=== PATIENT | female | born 1980 | race Caucasian/White ===

== ENCOUNTER 2025-06-10 08:05 | Emergency (ER) | payer OTHER, SELFPAY ==
--- NOTE | 2025-06-10 08:07 | ED.FEMALEGU ---
HPI - Female Genitourinary General Chief complaint: Urogenital-Female Stated complaint: Urinary Irritation Time Seen by Provider: 06/10/25 08:07 Source: patient Mode of arrival: ambulatory Limitations: no limitations History of Present Illness HPI Narrative: Valentine is a 44 year old female patient presenting to the clinic today with c/o possible UTI x 2 days. She reports she has had burning, frequency, and urgency with urination has had 2 episodes of incontinence where she did not make it to the bathroom on time. No fevers, chills, body aches, back pain, or abdominal pain. Does endorse some bladder pressure. No vaginal discharge or odor. No concern for STIs. History of tubal ligation. Related Data Allergies Allergy/AdvReac Type Severity Reaction Status Date / Time loracarbef Allergy Intermediate Rash Verified 09/02/13 15:29 Cephalosporins Allergy Mild Rash Unverified 02/25/09 13:37 Review of Systems Review of Systems: Pertinent positives per HPI. Patient denies any fever, chills, rash, headache, visual changes, dizziness, cough, runny nose, sore throat, shortness of breath, chest pain, palpitations, nausea, vomiting, diarrhea, constipation, abdominal pain, or any urinary issues. PMFSH Comments At the time of my signature, I reviewed and agree with the nursing past medical, surgical, social, and family history. There is no relevant family history pertinent to the patient complaint. Exam Narrative: General: Well-developed, well nourished, in no apparent distress. Head: Normocephalic, atraumatic. Cardio: Regular rate and rhythm, s1 and s2 normal, no murmur appreciated. Resp: Clear to auscultation bilaterally, no rhonchi, rales, wheezing or rubs. Abdomen: Soft, pliable, bowel sounds present in all quadrants, suprapubic-tender to palpation, no organomegly, no CVAT tenderness. Course Course Emergency Course: Portions of this record may have been created with voice recognition software. Level of Care: Express Care Visit Vital Signs Vital signs: Vital Signs Temperature 37.4 C 06/10/25 08:21 Pulse Rate 71 06/10/25 08:21 Respiratory Rate 20 06/10/25 08:21 Blood Pressure 110/68 06/10/25 08:21 Pulse Oximetry 100 06/10/25 08:21 Oxygen Delivery Room Air 06/10/25 08:21 Temperature 37.4 C 06/10/25 08:21 Pulse Rate 71 06/10/25 08:21 Respiratory Rate 20 06/10/25 08:21 Blood Pressure 110/68 06/10/25 08:21 Pulse Oximetry 100 06/10/25 08:21 Oxygen Delivery Room Air 06/10/25 08:21 Vital signs reviewed MDM - Female Genitourinary MDM Narrative Medical decision making narrative: At the time of visit patient is resting comfortably on the exam table. Patient appears to be nontoxic. C/o possible UTI x 2 days. Burning, frequency, and urgency with urination - 2 episodes of incontinence where she did not make it to the bathroom on time. No fevers, chills, body aches, back pain, or abdominal pain. No nausea or vomiting. Does endorse some bladder pressure. No vaginal discharge or odor. No concern for STIs. History of tubal ligation. Urine dip and urine culture ordered. Labs: Urine dip 1+ leukocytes, 1+ blood, and trace of protein. We will send urine for culture. Plan: I suspect patient has a simple UTI. Prescription for Bactrim DS 1 tab b.i.d. x5 days sent to the pharmacy. Supportive measures were discussed with the patient and they voiced understanding discharge instructions and agrees to treatment plan. Return precautions reviewed Differential Diagnosis Differential diagnosis: Likely urinary tract infection, cystitis and other (Pyelonephritis) Lab Data Labs: Lab Results 06/10/25 Range/Units 08:23 POC Urine Color Yellow POC Urine Clarity Cloudy POC Urine pH 6.5 POC Ur Specif Williamson 1.025 POC Urine Protein Trace (Negative) POC Ur Glucose (UA) Negative (Negative) POC Urine Ketones Negative (Negative) POC Urine Blood Trace (Negative) POC Urine Nitrite Negative (Negative) POC Urine Bilirubin Negative (Negative) POC Urine Urobilinogen 0.2 POC U Leukocyte Esteras 1+ (Negative) Discharge Plan Discharge Clinical Impression: Urinary tract infection Qualifiers: Urinary tract infection type: acute cystitis Hematuria presence: with hematuria Qualified Code(s): N30.01 - Acute cystitis with hematuria Patient Disposition: Home Condition: Stable Instructions: Antibiotic Form, Urinary Tract Infection in Women (ED) Additional Instructions: Urinalysis positive for 1+ leukocytes, 1+ blood, and a trace of protein. We will send urine for culture Take Bactrim as prescribed Increase fluids and stay well hydrated Wipe front to back. May use wet wipes. Avoid tub baths If sexually active- pee before and after intercourse. Wear cotton panties Avoid tight clothing up against the genitals Follow up with your PCP in 1 week if symptoms persist. Patient Language: [place] Prescriptions: New sulfamethoxazole-trimethoprim [Bactrim DS] 800-160 mg tablet 1 tablet PO Q12H 5 Days Qty: 10 0RF Follow-up/Referrals: UNKNOWN,DOCTOR [Non-Staff] - Time of Disposition: 08:30 Quality NIHSS Nursing Documentation ED NIHSS nursing documentation: reviewed/agree
[2025-06-10 08:21] VITALS: BP 110/68; PULSE 71; RESP 20; TEMP 37.4; O2SAT 100
[2025-06-10 08:30] LABS: EDUAAPPEAR Cloudy; EDUABILI Negative (Negative); EDUABLOOD Trace (Negative); EDUACOLOR1 Yellow; EDUAGLUCOSE Negative (Negative); EDUAKETONE Negative (Negative); EDUALEUKO 1+ (Negative); EDUANITRATE Negative (Negative); EDUAPH 6.5; EDUAPROTEIN Trace (Negative); EDUASPGRAVITY 1.025; EDUAUROBILI 0.2
== END 2025-06-10 08:35 | disposition home or self-care (01) ==
PROVIDERS: Emergency Provider Nurse Practitioner Family
DX: N30.01 Acute cystitis with hematuria (principal)
CPT/HCPCS: 81003; 87086; 99203; G0463